=== PATIENT | male | born 1990 | race Caucasian/White ===

== ENCOUNTER → 2022-05-22 16:44 | Outpatient (BNVA) | payer BC, OTHER, SELFPAY | PROVIDERS: Visit Provider Nurse Practitioner Family | DX: R31.9 Hematuria, unspecified (principal) | CPT/HCPCS: 81000; 87086; 87491; 87591; 87661 ==

== ENCOUNTER 2022-06-17 06:10 | Outpatient (CLI) | payer OTHER, SELFPAY ==
--- NOTE | 2022-06-17 06:20 | US_ITS ---
WS: [id number] RENAL ULTRASOUND HISTORY: HEMATURIA COMPARISON: None available. TECHNIQUE: 2-D and color Doppler imaging of the kidney submitted. Right kidney: 12.1 cm x 5.8 cm x 5.0 cm. Normal echogenicity with no hydronephrosis or mass. Left kidney: 12.2 cm x 6.6 cm x 5.9 cm. Normal echogenicity with no hydronephrosis or mass. Aorta: Normal. Urinary Bladder: Normal distention. US/US renal BI* [id number] IMPRESSION: Normal renal ultrasound.
== END 2022-06-17 06:11 | disposition home or self-care (01) ==
LOC: RAD 06:12
PROVIDERS: PCP Family Medicine; Visit Provider Nurse Practitioner Family
DX: R31.9 Hematuria, unspecified (principal)
CPT/HCPCS: 76770; 76857